=== PATIENT | female | born 1995 | race Hispanic/Latino ===

== ENCOUNTER 2018-05-01 18:06 | Emergency (ER) | payer SELFPAY ==
[~2018-05-01] VITALS: Ht 152.4 cm; Wt 87.7 kg
[2018-05-01] MEDS ORDERED: NAFTIN2 % EX (18:36)
[2018-05-01 18:43] VITALS: BP 153/94
== END 2018-05-01 18:47 | disposition home or self-care (01) | DRG 607 ==
LOC: ED 18:06
DX: B35.9 Dermatophytosis, unspecified (principal)